=== PATIENT | female | born 1965 | race Caucasian/White ===

== ENCOUNTER 2024-02-17 09:44 | Emergency (ER) | payer SELFPAY ==
[2024-02-17 09:59] VITALS: BP 151/100
--- NOTE | 2024-02-17 11:08 | ED.SKININJ ---
HPI-Injury
General
Chief Complaint: Bite
Source: patient
Exam Limitations: none
Time Seen by Provider: 02/17/24 10:59
Nursing documentation reviewed up to this point in time: agreed with
Travel History
Have you had any contact with someone who has COVID-19?: No
Do you have any symptoms of coronavirus? Fever > 100 degrees, chills, cough, shortness of breath, sore throat, loss of taste or smell, muscle aches, or headache?: No
History of Present Illness-Injury
Initial Injury comments:
58-year-old female with no reported medical problems presents after getting bit by a dog today when she was doing a house visit. Patient works for [employer]. She knows this dog which is a [place] and usually the dog is somewhat jumpy but
playful. When she entered the home with the homeowner next to the dog the dog immediately jumped up and bit her right forearm. It went through her coat and her sleeve, initially she thought she did not have a wound but had a little bit of soreness
and noticed a puncture wound. The dog is vaccinated and up-to-date on shots
Patient's not aware of her last tetanus shot. She is not having any numbness tingling or weakness in the arm.
Past History
Past History
ED Past Medical History: None
ED Past Surgical History: None
Review of Systems
Review of Systems
Allergies reviewed?: Yes
All Other Systems: Not applicable
Phy Exam
Physical Exam
Physical Exam:
GENERAL: Alert , in no apparent distress, comfortable at rest
HEAD: NCAT
CV: 2+ radial pulse
NEUROLOGICAL: Alert and oriented, no focal neuro deficits, , 5/5 strength, sensation intact
SKIN: Warm and dry, patient has a scratch/small puncture wound to her right proximal forearm measuring about 1.25 cm, no bleeding
MUSCULOSKELETAL: Full range of motion of the elbow, wrist, no significant soft tissue swelling near the puncture wound
PSYCH: Normal and appropriate interaction.
Course
Orders/Labs/Results
Orders:
Orders
02/17/24 11:13
Tetanus/Diphth/Acelpertussis [Adacel] 0.5 ml IM .ONCE ONE
02/17/24 11:33
Ibuprofen [Motrin] 600 mg PO NOW STA
02/17/24 11:35
Ibuprofen [Motrin] 600 mg .ROUTE .STK-MED ONE
Vital Signs
Initial and Last Documented VS:
Initial Vital Signs
Temp Pulse Resp BP Pulse Ox
98.0 F 97 20 151/100 99
02/17/24 09:59 02/17/24 09:59 02/17/24 09:59 02/17/24 09:59 02/17/24 09:59
Last Documented Vital Signs
Temp Pulse Resp BP Pulse Ox
98.0 F 97 20 151/100 99
02/17/24 09:59 02/17/24 09:59 02/17/24 09:59 02/17/24 09:59 02/17/24 09:59
MDM/Problems Addressed
Differential Diagnosis Includes:
Dog bite, laceration
MDM/Problems Addressed:
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 Patient has a puncture wound with a small abrasion to her right forearm. There are no neurovascular deficits. Patient's tetanus
shot was updated here. The dog is vaccinated and house pet. Augmentin twice daily, tetanus
*Critical Care Note
Total Time (30-74mins, 75-104mins- exclusive of procedures): Not Applicable
ED Attending Note
-
Portions of this chart may have been created with voice recognition software.� Occasional wrong word or��sound alike� substitutions may have occurred due to the inherent limitations of voice recognition software.
Discharge Plan
Departure
Patient Disposition: Home (Routine Discharge)
Date of Disposition: 02/17/24
Time of Disposition: 11:13
Patient with high blood pressure during this ER visit?: Yes
Condition: Fair
Covid-19: Not Applicable
Discharge Problem:
Dog bite
Instructions: Animal Bites (DC)
Prescriptions:
New
amoxicillin-pot clavulanate 875-125 mg tablet
1 tab PO BID Qty: 14 0RF
Activity Restrictions/Additional Instructions:
Keep the wound clean and dry. You can wash twice a day with soap and water and apply Neosporin and a Band-Aid. Watch for signs of infection. To prevent infection use Augmentin twice a day for 5 to 7 days. You may want to use a probiotic while
you are on this medication.
Take Tylenol or Motrin for pain. Please note that your blood pressure was mildly elevated today which could be because of the setting. Try to have this repeated and make sure to follow-up with your doctor if it is persistently high.
Interventions
Interventions:
*Risk Screen - Suicide Last Done: 02/17/24 12:03
*General Assessment Last Done: 02/17/24 12:03
*Neglect/Abuse Screening Last Done: 02/17/24 12:03
ED- Fall Risk Assessment Last Done: 02/17/24 12:03
*ED COVID-19 Vaccine History Last Done: 02/17/24 09:59
*Nursing Disposition Last Done: 02/17/24 12:04
ED-Skin Assessment Last Done: 02/17/24 11:45
Discharge Date and Time
Discharge Date/Time: 02/17/24 12:05
Print Language: FAROESE
[2024-02-17] MEDS: ADACEL 0.5 ML IM (11:21)
[2024-02-17] MEDS: MOTRIN 600 MG PO (11:38)
== END 2024-02-17 12:05 | disposition home or self-care (01) ==
LOC: EMR 09:44
PROVIDERS: EMERGENCY PHYSICIAN Emergency Medicine; FAMILY PHYSICIAN Family Medicine
DX: S51.851A Open bite of right forearm, initial encounter (principal); W54.0XXA Bitten by dog, initial encounter; R03.0 Elevated blood-pressure reading, without diagnosis of hypertension; Y99.0 Civilian activity done for income or pay; Z23 Encounter for immunization
CPT/HCPCS: 99282; 90471; 90715